=== PATIENT | female | born 1975 | race Caucasian/White ===

== ENCOUNTER 2018-04-30 10:07 | Emergency (ER) | payer OTHER ==
[~2018-04-30] VITALS: Ht 170.2 cm; Wt 88.9 kg
[~2018-04-30 10:07] MED LIST: CLEOCIN HCL300 MG PO; GOOD SENSE IBU200 MG PO; HYCET 325 MG/1473 ML PO; LEVOTHYROXINE0.1 MG PO; NOVOLOG100 UNIT/1; PERCOCET 325 MG1 TA2 PO; PROTONIX 40MG T40 MG PO; SYNTHROID0.025 MG PO; ZOFRAN4 M1 SL
--- NOTE | 2018-04-30 11:09 | RADIOLOGY REPORT ---
EXAMINATION: XR CHEST CLINICAL INFORMATION: Chest pain COMPARISON: None TECHNIQUE: 2 views of the chest were obtained. FINDINGS: Normal symmetric lung volumes. No parenchymal consolidation. No pleural effusion. No pneumothorax. Cardiomediastinal silhouette and pulmonary vascularity are within normal limits. No acute osseous abnormalities. Incompletely imaged posterior spinal fusion hardware extends from the upper thoracic spine off the inferior confines of the radiograph. IMPRESSION: No acute cardiopulmonary abnormality
[2018-04-30 11:20] LABS: ABSOLUTE BASOPHIL COUNT 0 /CUMM (0.0-0.2); ABSOLUTE EOSINOPHIL COUNT 0 /CUMM (0.0-0.7); BASOPHIL % 0 % (0.0-2.0); EOSINOPHIL % 0.2 % (0-5); HEMATOCRIT 26.7 % (37-47); MEAN CORPUSCULAR HGB CONC 30.4 G/DL (33.0-37.0)
[2018-04-30 11:25] LABS: ABSOLUTE GRANULOCYTE CT 11.5 /CUMM (1.4-6.5); ABSOLUTE LYMPH COUNT 0.5 /CUMM (1.2-3.4); ABSOLUTE MONOCYTE COUNT 0.6 /CUMM (0.10-0.60); MEAN CORPUSCULAR HGB 18.7 PG (27.0-31.0); MEAN CORPUSCULAR VOLUME 61.7 FL (81.0-99.0); MEAN PLATELET VOLUME 7.9 FL (7.4-10.4); PLATELET COUNT 410 /CUMM (130-400); RBC DISTRIBUTION WIDTH 20.1 % (11.5-14.5); RED BLOOD CELL CT 4.33 /CUMM (4.20-5.40)
[2018-04-30 11:28] LABS: WHITE BLOOD CELL COUNT 12.7 /CUMM (4.8-10.8)
[2018-04-30 11:29] LABS: GRANULOCYTE % 90.9 % (42.2-75.2)
--- NOTE | 2018-04-30 14:00 | ED GI/GU/ABDOMINAL COMPLAINT ---
History of Present Illness General Chief Complaint: General Adult Stated Complaint: "STOMACH FLU", CHEST PAIN Source: patient Exam Limitations: no limitations Vital Signs & Intake/Output Vital Signs & Intake/Output Vital Signs Date Time Temp Pulse Resp B/P B/P Pulse O2 O2 Flow FiO2 Mean Ox Delivery Rate 04/30 1557 97.8 71 18 118/58 100 Room Air 04/30 1339 Room Air Room Air 04/30 1014 98.8 107 18 137/83 99 Room Air Allergies Coded Allergies: acetaminophen (From PERCOCET) (Intermediate, NAUSEA 04/30/18) oxycodone (From PERCOCET) (Intermediate, NAUSEA 04/30/18) Reconcile Medications Insulin Aspart (Novolog) (Unknown Strength) CARTRIDGE (Unknown Dose) DIABETES (Reported) Triage Note: 42 Y/O FEMALE C/O N/V/D X 1 WEEK. ALSO C/O CHEST PAIN AND "I ALMOST PASSED OUT AT HOME". PT STATES HER INSULIN PUMP STOPPED WORKING LAST WEEK AND HER SUGARS HAVE BEEN HIGH AT HOME. HAS BEEN FEELING SICK SINCE THAT HAPPENED. FINGERSTICK 253 IN TRIAGE. TAKEN FOR EKG AND BLOOD DRAW Triage Nurses Notes Reviewed? yes ? n Is pt currently ? No HPI: 42-year-old white female with history of insulin dependent diabetes on an insulin pump presents with general fatigue, nausea 4, diarrhea 4 and mild diffuse abdominal pain. Patient reports a previous history of a LAP-BAND. She admits to slight abdominal bloating, but denies any melena, hematemesis, fever, chills, chest pain, shortness of breath, back pain, bright red blood per rectum, rash, or known history of peptic ulcer disease. She reports her abdominal pain is mild only. Past History Travel History Traveled to [place] past 21 day No Medical History Any Pertinent Medical History? see below for history Neurological: NONE EENT: NONE Cardiovascular: NONE Respiratory: NONE Gastrointestinal: cholelithiasis Hepatic: NONE Renal: NONE Musculoskeletal: SPINAL FUSION WITH RODS Psychiatric: NONE Endocrine: diabetes, hypothyroidism Blood Disorders: NONE Cancer(s): NONE MAID SUPERVISOR/Reproductive: NONE History of MRSA: No History of VRE: No History of CDIFF: No Tetanus Vaccine: 02/23/16 Surgical History Surgical History: , SPINAL FUSION bilateral tubal ligation Psychosocial History Who do you live with Family Services at Home None What is your primary language Irish Tobacco Use: Quit >30 days ago Family History Family History, If Any: FATHER (gallstones). grandmother (gallstones). Hx Contributory? No Review of Systems Review of Systems Constitutional: Reports: see HPI, weakness. Denies: no symptoms, chills, diaphoresis, fever, malaise, unexplained weight loss. All Other Systems: Reviewed and Negative Physical Exam Physical Exam General Appearance: well developed/nourished, no apparent distress, alert, awake Head: atraumatic, normal appearance Eyes: Bilateral: normal appearance, PERRL, EOMI, normal inspection. Ears, Nose, Throat, Mouth: hearing grossly normal, mucous membranes moist Neck: normal inspection, supple, full range of motion, normal alignment Respiratory: normal breath sounds, chest non-tender, no respiratory distress, quiet respiration Cardiovascular: regular rate/rhythm, norml femoral pulses equa Gastrointestinal: soft, no organomegaly, pulsatile mass, tenderness (mild in epigastrium) Back: normal inspection, normal range of motion Extremities: normal range of motion, evidence of injury Neurologic/Psych: no motor/sensory deficits, awake, alert, oriented x 3 Skin: intact, pallor Core Measures ACS in differential dx? Yes No ASA d/t Medical Contraindication Sepsis Present: No Sepsis Focused Exam Completed? No Progress Differential Diagnosis: AMI, appendicitis, biliary colic, bowel obstruction, cholecystitis, diverticulitis, gastritis, hepatitis, inflamm bowel dis, pancreatitis, peptic ulcer Plan of Care: Orders Procedure Date/time Status URINE 04/30 1019 Complete URINALYSIS 04/30 1019 Complete TROPONIN LEVEL 04/30 1019 Complete LIPASE 04/30 1019 Complete COMPREHENSIVE METABOLIC PANEL 04/30 1019 Complete CBC WITHOUT DIFFERENTIAL 04/30 1019 Complete EKG 04/30 1016 Active Laboratory Tests 04/30/18 1050: Urine Color YEL, Urine Clarity CLDY H, Urine pH 6.0, Ur Specific [place] >= 1.030, Urine Protein TRACE H, Urine Ketones >=80, Urine Nitrite NEG, Urine Bilirubin NEG@ICTO, Urine Urobilinogen 0.2, Ur Leukocyte Esterase TRACE H, Ur Microscopic SEDIMENT EXAMINED, Urine RBC 1-3, Urine WBC 3-5 H, Ur Epithelial Cells MANY H, Urine Bacteria FEW H, Urine Hemoglobin LARGE H, Urine Glucose 100 H, Urine Test NEGATIVE 04/30/18 1045: Anion Gap 12, Estimated GFR > 60, BUN/Creatinine Ratio 24.0, Glucose 197 H, Calcium 9.1, Total Bilirubin 0.5, AST 18, ALT 18, Alkaline Phosphatase 42, Troponin I < 0.01, Total Protein 7.1, Albumin 4.2, Globulin 2.9, Albumin/ Globulin Ratio 1.4, Lipase 38, CBC w Diff NO MAN DIFF REQ, RBC 4.33, MCV 61.7 L , MCH 18.7 L, MCHC 30.4 L, RDW 20.1 H, MPV 7.9, Gran % 90.9 H, Lymphocytes % 4.2 L, Monocytes % 4.7, Eosinophils % 0.2, Basophils % 0, Absolute Granulocytes 11.5 H, Absolute Lymphocytes 0.5 L, Absolute Monocytes 0.6, Absolute Eosinophils 0, Absolute Basophils 0 Initial ED EKG: normal axis, normal intervals, normal p-waves, normal QRS complex, normal sinus rhythm, NSR Comments: Immediately after being given a GI cocktail Reglan and Pepcid orally patient had increasing abdominal pain and reports "I feel awful". An IV will be added, patient will be given a fluid bolus, and Zofran 4 mg IV. Patient feeling much improved after IVF, Reglan and Pepcid. Noted anemia. Will discharge on Reglan and Iron supplements Departure Departure Time of Disposition: 161 Disposition: HOME OR SELF CARE Condition: Stable Clinical Impression Primary Impression: Nausea vomiting and diarrhea Secondary Impressions: Abdominal pain Qualifiers: Abdominal location: generalized Qualified Code: R10.84 - Generalized abdominal pain Anemia Qualifiers: Anemia type: iron deficiency Referrals: Lillian English MD (PCP/Family) Departure Forms: Customer Survey General Discharge Information Departure Departure Condition: Stable Referrals: Lillian English MD (PCP/Family) Departure Forms: Customer Survey General Discharge Information
[2018-04-30 15:57] VITALS: BP 118/58
[2018-04-30] MEDS ORDERED: HEMOCYTE324 MG PO (16:22)
[2018-04-30] MEDS ORDERED: REGLAN10 M1 PO (16:22)
== END 2018-04-30 16:46 ==
LOC: ERH 10:07
PROVIDERS: Physician Assistant Medical
DX: R11.2 Nausea with vomiting, unspecified (principal); R19.7 Diarrhea, unspecified; R10.84 Generalized abdominal pain; R07.9 Chest pain, unspecified; E11.9 Type 2 diabetes mellitus without complications; Z79.4 Long term (current) use of insulin; R53.83 Other fatigue
CPT/HCPCS: 71046; 81001; 81025; 93005; 93010; 96374; J2405